=== PATIENT | male | born 1995 | race American Indian/Alaskan Native ===

== ENCOUNTER 2020-07-16 21:31 | Emergency (ER) | payer OTHER ==
--- NOTE | 2020-07-16 21:37 | ERPHSYRPT ---
- History of Present Illness Time Seen by Provider: 07/16/20 21:37 Historian: patient Exam Limitations: no limitations Physician History: This is a 24-year-old white male who presents with left flank pain. He has a history of recurrent UTIs. Patient, because of a chronic disease process, he self catheterizes himself. He began with flank pain at approximately 4:30 PM this afternoon and it had worsened over 5 hours. He does not have chest pain. Has no abdominal pain. He has no shortness of breath. Timing/Duration: today Quality: aching Abdominal Pain Onset Location: flank (Left) Pain Radiation: no radiation Severity of Pain-Max: moderate Severity of Pain-Current: moderate Modifying Factors: Improves With: nothing Associated Symptoms: denies symptoms Previous symptoms: same symptoms as today Allergies/Adverse Reactions: latex Allergy (Intermediate, Verified 07/16/20 22:05) Penicillins Allergy (Intermediate, Verified 07/16/20 22:05) hydromorphone [From Dilaudid] Adverse Reaction (Intermediate, Verified 07/16/20 22:05) Home Medications: Buspirone HCl 7.5 mg PO DAILY 07/16/20 [History] Oxybutynin Chloride [Oxybutynin Chloride ER] 10 mg PO DAILY 07/16/20 [History] Travel Risk - International Travel Have you traveled outside of the country in past 3 weeks: No - Coronavirus Screening Are you exhibiting any of the following symptoms?: No Close contact with a COVID-19 positive Pt in past 14-21 Days: No - Vaccine Status Have you recieved a Covid-19 vaccination: No - Review of Systems Constitutional: No Symptoms Eyes: No Symptoms Ears, Nose, & Throat: No Symptoms Respiratory: No Symptoms Cardiac: No Symptoms Abdominal/Gastrointestinal: No Symptoms Genitourinary Symptoms: Flank Pain (Left) Musculoskeletal: No Symptoms Skin: No Symptoms Neurological: No Symptoms Psychological: No Symptoms Endocrine: No Symptoms Hematologic/Lymphatic: No Symptoms Immunological/Allergic: No Symptoms All Other Systems: Reviewed and Negative - Past Medical History Pertinent Past Medical History: Yes - Past Surgical History Past Surgical History: Yes - Nursing Vital Signs Nursing Vital Signs: Initial Vital Signs Temperature 96.7 F 07/16/20 21:42 Pulse Rate 84 07/16/20 21:42 Respiratory Rate 16 07/16/20 21:42 Blood Pressure 109/77 07/16/20 21:42 O2 Sat by Pulse Oximetry 100 07/16/20 21:42 Pain Scale Pain Intensity 8 - Physical Exam General Appearance: no apparent distress, alert, anxiety Eye Exam: PERRL/EOMI, eyes nml inspection Ears, Nose, Throat Exam: normal ENT inspection, moist mucous membranes Neck Exam: normal inspection, non-tender, supple, full range of motion Respiratory Exam: airway intact, No chest tenderness, No respiratory distress Gastrointestinal/Abdomen Exam: No tenderness Rectal Exam: not done Back Exam: normal inspection, normal range of motion, CVA tenderness (Left), vertebral tenderness, other Extremity Exam: normal inspection, normal range of motion, pelvis stable Neurologic Exam: alert, oriented x 3, cooperative, 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 Skin Exam: normal color, warm, dry Lymphatic Exam: adenopathy SpO2 Interpretation: normal O2 Delivery: Room Air - Course Nursing assessment & vital signs reviewed: Yes Ordered Tests: Active Orders 24 hr Category Date Time Status CULTURE,URINE Stat Lab 07/16/20 21:44 Received UA W/RFX UR CULTURE Stat Lab 07/16/20 21:44 Completed Medication Summary Discontinued Medications Generic Name Dose Route Start Last Admin Trade Name Giorgiq PRN Reason Stop Dose Admin Hydrocodone Bitart/Acetaminophen 1 tab 07/16/20 23:09 07/16/20 23:16 [place] 5/325 Mg PO 07/16/20 23:10 1 tab STAT ONE Administration Hydrocodone Bitart/Acetaminophen Confirm 07/16/20 23:13 [place] 5/325 Mg Administered 07/16/20 23:14 Dose 1 tab .ROUTE .STK-MED ONE Ceftriaxone Sodium 1,000 mg 07/16/20 23:08 07/16/20 23:24 Rocephin 1000 Mg Inj IM 07/16/20 23:09 1,000 mg STAT ONE Administration Ceftriaxone Sodium Confirm 07/16/20 23:13 Rocephin 1000 Mg Inj Administered 07/16/20 23:14 Dose 1,000 mg .ROUTE .STK-MED ONE Lidocaine HCl Confirm 07/16/20 23:15 Xylocaine 1% Hcl 20 Ml Mdv Administered 07/16/20 23:16 Dose 2 ml .ROUTE .STK-MED ONE Lab/Rad Data: Laboratory Results 07/16/20 Range/Units 21:44 Urine Color YELLOW (YELLOW) Urine Appearance CLOUDY (CLEAR) Urine pH 6.0 (5-6) Ur Specific [place] 1.015 (1.005-1.025) Urine Protein 100 (Negative) Urine Ketones NEGATIVE (NEGATIVE) Urine Blood SMALL (0-5) Enzo/ul Urine Nitrite POSITIVE (NEGATIVE) Urine Bilirubin NEGATIVE (NEGATIVE) Urine Urobilinogen NEGATIVE (0-1) mg/dL Ur Leukocyte Esterase MODERATE (NEGATIVE) Urine WBC (Auto) NONE (0-5) /HPF Urine RBC (Auto) NONE (0-2) /HPF U Epithel Cells (Auto) NONE (FEW) /HPF Urine Bacteria (Auto) MODERATE (NEGATIVE) /HPF Urine Culture Reflexed YES (NO) Urine Glucose NEGATIVE (NEGATIVE) mg/dL - Progress Progress: unchanged Progress Note: 07/16/20 23:47 The urine gonorrhea and chlamydia test has been pending. Just prior to it turning out a result, the machine malfunction. We are rerunning the urinalysis. The result will be out for us to review in another 2 hours. The patient does not want to wait another 2 hours. I did give him an injection of Rocephin which should cover gonorrhea. 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 We will call him in the next 2 hours to give him the results of his urinalysis that is, is GC or chlamydia positive. If it is positive we will send a prescription to his pharmacy for a Z-Milo 1 g to take all at once. This was discussed with the patient and he agrees to follow this plan. Counseled pt/family regarding: diagnosis, need for follow-up - Departure Departure Disposition: Home Clinical Impression: UTI (urinary tract infection) Condition: Stable Critical Care Time: No Referrals: [facility] [Primary Care Provider] - Additional Instructions: Drink plenty of fluids. Take your medication as prescribed. Follow-up with your primary care physician for persistent or worsening symptoms. Use Tylenol and ibuprofen for pain control. Forms: Work/School Release Form Prescriptions: Ciprofloxacin [Cipro 500 MG] 500 mg PO BID #14 tablet
[2020-07-16 22:12] LABS: Appearance CLOUDY (CLEAR); Bilirubin NEGATIVE (NEGATIVE); Blood SMALL Ery/ul (0-5); Glucose NEGATIVE (NEGATIVE); Ketones NEGATIVE (NEGATIVE); Leukocyte Esterase MODERATE (NEGATIVE); Nitrite POSITIVE (NEGATIVE); Protein,Urine Dip 100 (Negative); Specific Gravity 1.015 (1.005-1.025); Urobilinogen NEGATIVE mg/dL (0-1)
[2020-07-16 22:26] LABS: Bacteria MODERATE /HPF (NEGATIVE)
[2020-07-16] MEDS ORDERED: Rocephin 1000 MG INJ IM ONE (23:08)
[2020-07-16] MEDS ORDERED: NORCO 5/325 MG PO ONE (23:09)
[2020-07-16] MEDS ORDERED: Rocephin 1000 MG INJ ONE (23:13)
[2020-07-16] MEDS ORDERED: NORCO 5/325 MG ONE (23:13)
[2020-07-16] MEDS ORDERED: XYLOCAINE 1% HCL 20 ML MDV ONE (23:15)
[2020-07-17 00:15] VITALS: BP 108/65; PULSE 80; O2SAT 100
[2020-07-17 02:59] LABS: CHLAMYDIA DNA NOT DETECTED (NEGATIVE); GC DNA Probe NOT DETECTED (NEGATIVE)
== END 2020-07-17 00:13 | disposition home or self-care (01) ==
LOC: ED 21:31
DX: N39.0 Urinary tract infection, site not specified (principal); Z87.440 Personal history of urinary (tract) infections
CPT/HCPCS: 81001; 87077; 87086; 87186; 87491; 87591; 96372; 99284; J0696; A9270-GY

== ENCOUNTER 2020-12-23 22:18 | Emergency (ER) | payer OTHER ==
--- NOTE | 2020-12-23 23:34 | ERPHSYRPT ---
- History of Present Illness Time Seen by Provider: 12/23/20 22:40 Source: patient Exam Limitations: no limitations Patient Subjective Stated Complaint: Patient c/o pain to RLE in his hu area. Triage Nursing Assessment: Patient ambulated back to ED with a slow, steady gait. Right hu slightly swollen and feels hard to palpation. Area is not red or hot. Skin is intact to area. No discoloration noted. Pedal pulse present. ROM WNL to RLE. Negative porfirio's sign. Physician History: Patient is a 25-year-old male presents to our ED with complaints of swelling to his right lower extremity. Patient states that he was in the walking boot for an ankle sprain for approximately 2 weeks. Patient advises that both his parents have history of DVT. Patient additionally complains of pain to the anterior aspect of the distal tibia primarily over the tibialis anterior muscle. No trauma. No fever. No nausea or vomiting. No chest pain or shortness of breath. No numbness tingling weakness. Symptoms are mild to moderate in intensity. No specific worsening improving factors. Patient voices no other complaints concerns at this time. Timing/Duration: today Severity: moderate Modifying Factors: Improves With: nothing Associated Symptoms: denies symptoms Allergies/Adverse Reactions: latex Allergy (Intermediate, Verified 12/23/20 22:32) Penicillins Allergy (Intermediate, Verified 12/23/20 22:32) hydromorphone [From Dilaudid] Adverse Reaction (Intermediate, Verified 12/23/20 22:32) Home Medications: Buspirone HCl 7.5 mg PO DAILY 07/16/20 [History] Oxybutynin Chloride [Oxybutynin Chloride ER] 10 mg PO DAILY 07/16/20 [History] Hx Tetanus, Diphtheria Vaccination/Date Given: Yes Hx Influenza Vaccination/Date Given: Yes Hx Pneumococcal Vaccination/Date Given: No Immunizations Up to Date: Yes Travel Risk - International Travel Have you traveled outside of the country in past 3 weeks: No - Coronavirus Screening Are you exhibiting any of the following symptoms?: No Close contact with a COVID-19 positive Pt in past 14-21 Days: No - Vaccine Status Have you recieved a Covid-19 vaccination: No - Review of Systems Constitutional: No Symptoms, No Fever, No Chills Eyes: No Symptoms Ears, Nose, & Throat: No Symptoms Respiratory: No Symptoms, No Cough, No Dyspnea Cardiac: No Symptoms, No Chest Pain, No Edema, No Syncope Abdominal/Gastrointestinal: No Symptoms, No Abdominal Pain, No Nausea, No Vomiting, No Diarrhea Genitourinary Symptoms: No Symptoms, No Dysuria Musculoskeletal: No Symptoms, No Back Pain, No Neck Pain Skin: No Symptoms, No Rash Neurological: No Symptoms, No Dizziness, No Focal Weakness, No Sensory Changes Psychological: No Symptoms Endocrine: No Symptoms Hematologic/Lymphatic: No Symptoms Immunological/Allergic: No Symptoms All Other Systems: Reviewed and Negative - Past Medical History Pertinent Past Medical History: Yes GI Medical History: Other History: Other Other Medical History: 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 "port" in abd- pt states he flushed thru to have a bm. - Social History Smoking Status: Current every day smoker How long have you smoked: 8 yrs Exposure to second hand smoke: Yes Drug Use: none Patient Lives Alone: No - Nursing Vital Signs Nursing Vital Signs: Initial Vital Signs Temperature 97.9 F 12/23/20 22:33 Pulse Rate 90 12/23/20 22:33 Respiratory Rate 19 12/23/20 22:33 Blood Pressure 111/68 12/23/20 22:33 O2 Sat by Pulse Oximetry 100 12/23/20 22:33 Pain Scale Pain Intensity 8 - Physical Exam General Appearance: no apparent distress, alert Eye Exam: PERRL/EOMI, eyes nml inspection Ears, Nose, Throat Exam: normal ENT inspection, TMs normal, pharynx normal, moist mucous membranes Neck Exam: normal inspection, non-tender, supple, full range of motion Respiratory Exam: normal breath sounds, lungs clear, airway intact, No respiratory distress Cardiovascular Exam: regular rate/rhythm, normal heart sounds, normal peripheral pulses Gastrointestinal/Abdomen Exam: soft, normal bowel sounds, No tenderness, No mass Back Exam: normal inspection, normal range of motion, No CVA tenderness, No vertebral tenderness Extremity Exam: normal inspection, normal range of motion, pelvis stable, other (Negative Homans' sign right lower extremity. However the right lower extremity is visibly swollen as compared to the contralateral side. The extremity is neurovascular intact distally. Compartments are soft. Cap refill less than 2 seconds.) Neurologic Exam: alert, oriented x 3, cooperative, normal mood/affect, sensation nml, No motor deficits Skin Exam: normal color, warm, dry, No rash Lymphatic Exam: No adenopathy SpO2 Interpretation: normal SpO2: 100 O2 Delivery: Room Air - Course Nursing assessment & vital signs reviewed: Yes - Radiology Ultrasound Exam Venous Lower Extremity Ultrasound: discussed w/radiologist (No DVT as per lombardi developer.) Ordered Tests: Active Orders 24 hr Category Date Time Status VENOUS UNILAT/LIMITED EXTREMIT [US] Stat Exams 12/23/20 22:43 Ordered - Progress Progress: unchanged Progress Note: Patient reassessed. He feels well. Ultrasound negative for DVT. No indication for further up at this time. Patient does have a contusion anterior hu right lower extremity. [id number] analgesics as needed. Patient agrees to follow-up with his primary care doctor within 48 hours for evaluation. He voices no other complaints or concerns at this time. Portions of this note were created with voice recognition technology. There may be grammatical, spelling, punctuation or sound alike errors 12/23/20 23:36 Counseled pt/family regarding: diagnosis, need for follow-up, rad results - Departure Departure Disposition: Home Clinical Impression: Contusion of leg, right Condition: Stable Critical Care Time: No Referrals: [facility] [Primary Care Provider] - Additional Instructions: Discharge/Care Plan HARRY PACK was seen on 12/23/20 in the Emergency Room. The patient was counseled regarding Diagnosis,Lab results, Imaging studies, need for follow up and when to return to the Emergency Room. Prescriptions given: Discharge Note I have spoken with the patient and/or caregivers. I have explained the patient's condition, diagnosis and treatment plan based on the information available to me at this time. I have answered the patient's and/or caregiver's questions and addressed any concerns. The patient and/or caregivers have as good understanding of the patient's diagnosis, condition and treatment plan as can be expected at this point. The vital signs have been stable. The patient's condition is stable and appropriate for discharge from the emergency department. The patient will pursue further outpatient evaluation with the primary care physician or other designated or consulting physician as outlined in the discharge instructions. The patient and/or caregivers are agreeable to this plan of care and follow-up instructions have been explained in detail. The patient and/or caregivers have received these instruction. The patient/and or caregivers are aware that any significant change in condition or worsening of symptoms should prompt an immediate return to this or the closest emergency department or call 911.
[2020-12-24 00:17] VITALS: BP 102/63; PULSE 96; O2SAT 98
--- NOTE | 2020-12-24 08:43 | XRAY ---
Indication: Right leg pain. Two-dimensional sonogram and color Doppler imaging of the major venous vessels of the right leg performed. Comparison: None No thrombus seen in the examined deep venous vessels of the right leg including greater saphenous vein. Veins demonstrate normal compressibility. Venous waveforms are normal with and without augmentation. Impression: Right leg negative for DVT. Comment: Preliminary report was given.
== END 2020-12-24 00:24 | disposition home or self-care (01) ==
LOC: ED 22:18
DX: S80.11XA Contusion of right lower leg, initial encounter (principal); M79.604 Pain in right leg; M79.89 Other specified soft tissue disorders
CPT/HCPCS: 93971; 99283